=== PATIENT | female | born 1975 | race African-American/Black ===

== ENCOUNTER 2016-05-28 10:24 | Observation (INO) | payer OTHER ==
[~2016-05-28] VITALS: Ht 154.9 cm; Wt 85.0 kg
[~2016-05-28 10:24] MED LIST: GLUCTAB PO; HYDR-2768 PO; ROSU40 PO; [UNRECOGNIZED DRUG - CODE] PO
[2016-05-28 10:26] VITALS: BP 135/68; PULSE 68; RESP 12; TEMP 98.3; O2SAT 100
--- NOTE | 2016-05-28 10:50 | PD ---
HPI Chief Complaint: Chest Pain Time Seen by Provider: 10:49 Travel History International Travel<30 days: No Contact w/Intl Traveler<30days: No Traveled to known affect area: No History of Present Illness HPI 40-year-old female came to the emergency room with history of chest pain for past 2-3 days. Patient points to the left side of her chest and says pain is 8 out of 10. The pain waxes and wanes but never really goes away. No elevating or relieving factors. No radiation of the pain. She describes the pain to be sharp "poking" kind of pain. No recent long distance travel, procedures or surgeries. Patient has had substernal chest pains before and was told its atypical chest pain. She has never had a stress test. Patient has history of hypertension, hypercholesterolemia and diabetes. She recently had her high blood pressure and cholesterol medication doses increased since her blood pressure and cholesterol was out of control. Her father has history of heart attacks and 3 years ago from complications of it. She is not a smoker. [facility] Past Medical History Narrative Medical List of her past medical history is reviewed from the nursing note. Arthritis: Yes (OSTEO) Cardiovascular Problems: Yes (htn) Diabetes: Yes (type2) Diminished Hearing: No Musculoskeletal: Yes (CHRONIC BACK PAIN - PRN MEDS) Reproductive: Yes (UTERINE FIBRIODS) Migraines: Yes ?: Not LMP: 05/27/16 : 2 Para: 2 Tubal Ligation: Yes (TUBAL LIGATION 1999) Past Surgical History Gynecologic Surgery: Yes (TUBAL LIGATION) Family History Family Myocardial Infarction: Yes (father of heart attack) Social History Alcohol Use: Yes (OCCASIONALLY) Tobacco Use: No Substance Use: No Allergies-Medications (Allergen,Severity, Reaction): Coded Allergies: Tramadol (Verified Adverse Reaction, Severe, ITCHING, 08/02/14) Comments List of her allergies reviewed from the nursing note. Reported Meds & Prescriptions Reported Meds & Active Scripts Active Reported Triamterene-Hydrochlorothiazide 75-50 Mg Tab 1 Tab PO DAILY Lovastatin 40 Mg Tab 40 Mg PO DAILY Metformin (Metformin HCl) 500 Mg Tab 250 Mg PO DAILY With a meal Narrative Medication List of her home medications reviewed from the nursing note. Review of Systems Except as stated in HPI: all other systems reviewed are Neg Physical Exam Narrative GENERAL: Awake, alert, obese, anxious, mild distress SKIN: Warm and dry. HEAD: Atraumatic. Normocephalic. EYES: Pupils equal and round. No scleral icterus. No injection or drainage. ENT: No nasal bleeding or discharge. Mucous membranes pink and moist. NECK: Trachea midline. No JVD. CARDIOVASCULAR: Regular rate and rhythm. No murmur appreciated. RESPIRATORY: No accessory muscle use. Clear to auscultation. Breath sounds equal bilaterally. No reproducible chest pain GASTROINTESTINAL: Abdomen soft, non-tender, nondistended. Hepatic and splenic margins not palpable. MUSCULOSKELETAL: No obvious deformities. No clubbing. No cyanosis. No edema. NEUROLOGICAL: Awake and alert. No obvious cranial nerve deficits. Motor grossly within normal limits. Normal speech. PSYCHIATRIC: Appropriate mood and affect; insight and judgment normal. Data Data Last Documented VS Vital Signs Date Time Temp Pulse Resp B/P Pulse Ox O2 Delivery O2 Flow Rate FiO2 05/28/16 11:11 97 Room Air 05/28/16 11:11 77 18 140/65 05/28/16 10:26 98.3 Orders Electrocardiogram (05/28/16 10:54) Basic Metabolic Panel (Bmp) (05/28/16 10:54) Ckmb (Isoenzyme) Profile (05/28/16 10:54) Complete Blood Count With Diff (05/28/16 10:54) Magnesium (Mg) (05/28/16 10:54) Prothrombin Time / Inr (Pt) (05/28/16 10:54) Act Partial Throm Time (Ptt) (05/28/16 10:54) Troponin I (05/28/16 10:54) Chest, Single Ap (05/28/16 10:54) Ecg Monitoring (05/28/16 10:54) Bilateral Bp Monitoring (05/28/16 10:54) Iv Access Insert/Monitor (05/28/16 10:54) Oximetry (05/28/16 10:54) Oxygen Administration (05/28/16 10:54) Sodium Chloride 0.9% Flush (Ns Flush) (05/28/16 11:00) Aspirin Chew (Aspirin Chew) (05/28/16 11:00) Morphine Inj (Morphine Inj) (05/28/16 11:00) Ondansetron Inj (Zofran Inj) (05/28/16 11:00) Sodium Chlorid 0.9% 500 Ml Inj (Ns 500 M (05/28/16 12:15) Admit Order (Ed Use Only) (05/28/16 12:03) Labs Laboratory Tests Test 05/28/16 11:05 White Blood Count 5.9 TH/MM3 Red Blood Count 5.20 MIL/MM3 Hemoglobin 13.1 GM/DL Hematocrit 38.8 % Mean Corpuscular Volume 74.7 FL Mean Corpuscular Hemoglobin 25.3 PG Mean Corpuscular Hemoglobin 33.8 % Concent Red Cell Distribution Width 12.9 % Platelet Count 243 TH/MM3 Mean Platelet Volume 9.6 FL Neutrophils (%) (Auto) 48.7 % Lymphocytes (%) (Auto) 41.1 % Monocytes (%) (Auto) 7.2 % Eosinophils (%) (Auto) 2.1 % Basophils (%) (Auto) 0.9 % Neutrophils # (Auto) 2.9 TH/MM3 Lymphocytes # (Auto) 2.4 TH/MM3 Monocytes # (Auto) 0.4 TH/MM3 Eosinophils # (Auto) 0.1 TH/MM3 Basophils # (Auto) 0.1 TH/MM3 CBC Comment DIFF FINAL Differential Comment Prothrombin Time 10.7 SEC Prothromb Time International 1.0 RATIO Ratio Activated Partial 26.7 SEC Thromboplast Time Sodium Level 133 MEQ/L Potassium Level 3.9 MEQ/L Chloride Level 99 MEQ/L Carbon Dioxide Level 27.9 MEQ/L Anion Gap 6 MEQ/L Blood Urea Nitrogen 15 MG/DL Creatinine 0.79 MG/DL Estimat Glomerular Filtration 97 ML/MIN Rate Random Glucose 90 MG/DL Calcium Level 9.5 MG/DL Magnesium Level 2.0 MG/DL Total Creatine Kinase 82 U/L Troponin I LESS THAN 0.02 NG/ML MDM Medical Decision Making Medical Screen Exam Complete: Yes Emergency Medical Condition: Yes Medical Record Reviewed: Yes Interpretation(s) Twelve-lead EKG was reviewed by me. Normal sinus rhythm, normal axis, nonspecific ST-T wave changes. Heart rate of 65 bpm. Differential Diagnosis ACS, non-STEMI, nonspecific chest pain Narrative Course 11:10 AM awaiting for the blood test result. Patient has multiple risk factors for coronary artery disease. I discussed this with the patient. My plan is to admit her to chest pain center to rule out ACS at the least of the blood tests are negative. 12:01 PM CBC is back and within normal limit. Chest x-rays within normal limit. Chemistry shows mild hyponatremia but troponin is within normal limit. I'll admit her to the chest pain center to rule out ACS. Procedures EKG Prior to Arrival: Yes Diagnosis Primary Impression: Chest pain Qualified Code: R07.9 - Chest pain, unspecified type Additional Impression: Hyponatremia Admitting Information Admitting Physician Requests: Observation Stephanie Arrington MD May 28, 2016 10:50
[2016-05-28] MEDS ORDERED: ASPIRIN 81 MG CHEW TAB CHEW ONE (11:00)
[2016-05-28] MEDS ORDERED: SODIUM CHLORIDE 0.9% FLUSH 5 ML FLUSH IVF PRN ×2 (11:00→12:45)
[2016-05-28] MEDS ORDERED: MORPHINE SULFATE 4 MG/ML INJ IV PUSH ONE (11:00)
[2016-05-28] MEDS ORDERED: ONDANSETRON HCL 4 MG/2 ML VIAL IV PUSH ONE (11:00)
[2016-05-28 11:11] VITALS: BP_SYST 121; BP_SYST 140; BP_DIAS 65; BP_DIAS 69; PULSE 76; PULSE 77; RESP 18; O2SAT 98
[2016-05-28 11:17] LABS: AUTOMATED NEUTROPHIL # 2.9 TH/MM3 (1.8-7.7); BASOPHIL # 0.1 TH/MM3 (0-0.2); BASOPHIL % 0.9 % (0.0-2.0); EOSINOPHIL # 0.1 TH/MM3 (0-0.4); EOSINOPHIL % 2.1 % (0.0-4.0); HEMATOCRIT 38.8 % (35.0-46.0); HEMO FLAGS DIFF FINAL; LYMPH % 41.1 % (9.0-44.0); LYMPHOCYTE # 2.4 TH/MM3 (1.0-4.8); MEAN CELL VOLUME 74.7 FL (80.0-100.0); MEAN CORPUSCULAR HEMOGLOBIN 25.3 PG (27.0-34.0); MEAN CORPUSCULAR HGB CONC 33.8 % (32.0-36.0); MONO % 7.2 % (0.0-8.0); NEUT % 48.7 % (16.0-70.0); PLATELET COUNT 243 TH/MM3 (150-450); RED CELL DISTRIBUTION WIDTH 12.9 % (11.6-17.2); WHITE BLOOD COUNT 5.9 TH/MM3 (4.0-11.0)
[2016-05-28] MEDS ORDERED: TRIA1TAB5 PO (11:21)
[2016-05-28] MEDS ORDERED: LOVA40TA PO (11:21)
[2016-05-28] MEDS ORDERED: METF500T PO (11:21)
[2016-05-28 11:27] LABS: APTT (PATIENT) 26.7 SEC (24.3-30.1); PROTHROMBIN TIME - PATIENT 10.7 SEC (9.8-11.6)
--- NOTE | 2016-05-28 11:43 | RADRPT ---
EXAM DATE/TIME: 05/28/2016 10:58 [facility] COMPARISON: No previous studies available for comparison. INDICATIONS : Chest pain. MEDICAL HISTORY : None. SURGICAL HISTORY : None. ENCOUNTER: Initial ACUITY: 1 day PAIN SCORE: 0/10 LOCATION: Left chest FINDINGS: A single view of the chest demonstrates the lungs to be symmetrically aerated without evidence of mas s, infiltrate or effusion. The cardiomediastinal contours are unremarkable. Osseous structures are intact. CONCLUSION: No acute disease. Sukhi Jose MD on May 28, 2016 at 11:41 Board Certified Radiologist. This report was verified electronically.
[2016-05-28 11:57] LABS: ANION GAP 6 MEQ/L (5-15); BICARBONATE 27.9 MEQ/L (21.0-32.0); BLOOD UREA NITROGEN 15 MG/DL (7-18); CHLORIDE 99 MEQ/L (98-107); GLOMERULAR FILTRATION RATE 97 ML/MIN (>89); SODIUM (NA) 133 MEQ/L (136-145)
[2016-05-28 12:01] LABS: CREATINE KINASE 82 U/L (26-192); POTASSIUM 3.9 MEQ/L (3.5-5.1)
[2016-05-28] MEDS ORDERED: SODIUM CHLORID 0.9% 500 ML INJ 500 ML IV ONE (12:15)
[2016-05-28 12:45] VITALS: BP 130/55; PULSE 55; RESP 18; O2SAT 97
[2016-05-28] MEDS ORDERED: GLUCAGON 1 MG/ML VIAL IM/SQ PRN (12:45)
[2016-05-28] MEDS ORDERED: DEXTROSE 50% IN WATER 50 ML VIAL(D50) IV PRN (12:45)
--- NOTE | 2016-05-28 12:59 | HHI.HP ---
HPI Primary Care Physician Non-Staff Chief Complaint Chest pain History of Present Illness This is a 40-year-old female that presents to the ED clouding of chest discomfort. She states that yesterday she had pinching type of discomforts with tingling going down her left arm. Then this morning she developed a discomfort in her sternum that was more constant. Initially the discomfort was a 12 out of 10. After morphine and took her to buy an 8 out of 10. It has continued to dissipate and is currently a much lower level. She was not short of breath but did have it took her breath away initially. No nausea or diaphoresis. She has had discomfort in her chest before and was seen for it and was told that it was atypical chest discomfort. She has never had stress testing. Never had heart catheterization. Denies recent illness or trauma. Nothing make her symptoms worse. Morphine did help. Review of Systems General: Patient denies fevers, chills recent, and recent travel HEENT: Patient denies headache, sore throat, difficulty swallowing. Cardiovascular: Has the chest discomfort as mentioned above. Denies sensation of heart beating rapidly or irregularly. No syncope. Respiratory: Denies shortness of breath or inspirational chest discomfort. Denies coughing wheezing or hemoptysis. GI: Patient denies nausea, vomiting, diarrhea, abdominal pain, bloody stools. Musculoskeletal: Patient denies joint pain or edema. Denies calf pain or edema. Neurovascular: Patient denies numbness, tingling, weakness in extremities. Denies headache. Endocrine: Denies polyuria and polydipsia. Hematologic: Denies easy bruising. Skin: Denies rash or itching. Past Family Social History Allergies: Coded Allergies: Tramadol (Verified Adverse Reaction, Severe, ITCHING, 08/02/14) Past Medical History Hypertension, hyperlipidemia, and diabetes. Denies known coronary artery disease. Past Surgical History Tubal ligation. Reported Medications Reported Meds & Active Scripts Active Reported Triamterene-Hydrochlorothiazide 75-50 Mg Tab 1 Tab PO DAILY Lovastatin 40 Mg Tab 40 Mg PO DAILY Metformin (Metformin HCl) 500 Mg Tab 250 Mg PO DAILY With a meal Active Ordered Medications Current Medications Medications (Trade) Dose Ordered Sig/Igor Route Start Time Stop Time Status Last Admin IV Flush 2 ml 2 ml UNSCH PRN IVF 05/28/16 11:00 (NS 500 ml Inj) 500 ml @ 500 mls/hr BOLUS ONCE IV 05/28/16 12:15 05/28/16 13:14 05/28/16 12:47 (NS Flush) 2 ml UNSCH PRN IVF 05/28/16 12:45 (NS Flush) 2 ml BID IVF 05/28/16 21:00 (Tylenol) 500 mg Q4H PRN PO 05/28/16 13:00 (Zofran Inj) 4 mg Q6H PRN IV 05/28/16 17:00 (Aspirin) 325 mg DAILY PO 05/29/16 09:00 (D50w (Vial) Inj) 25 ml UNSCH PRN IV 05/28/16 12:45 (Glucagon Inj) 1 mg UNSCH PRN IM/SQ 05/28/16 12:45 Family History Father had an AL at 68. Social History Patient is a nonsmoker. Has occasional alcohol. Denies illicit drugs. Physical Exam Vital Signs Vital Signs Date Time Temp Pulse Resp B/P Pulse Ox O2 Delivery O2 Flow Rate FiO2 05/28/16 12:45 55 18 130/55 97 Nasal Cannula 2 05/28/16 11:11 97 Room Air 05/28/16 11:11 77 18 140/65 98 Room Air 05/28/16 11:11 86 18 97 Room Air 05/28/16 11:11 76 121/69 140/65 05/28/16 10:26 98.3 68 12 135/68 100 Room Air Physical Exam GENERAL: This is a well-nourished, well-developed patient, in no apparent distress. Patient speaks in clear complete sentences. Patient is pleasant. HEENT: Head is atraumatic and normocephalic. Neck is supple without lymphadenopathy and trachea is midline. No JVD or carotid bruits. CARDIOVASCULAR: Regular rate and rhythm without murmurs, gallops, or rubs. RESPIRATORY: Clear to auscultation. Breath sounds equal bilaterally. No wheezes , rales, or rhonchi. Chest wall is tender on the left side however it is not the same discomfort. No use of accessory muscles. GASTROINTESTINAL: Abdomen is nontender, nondistended. Abdomen soft. No obvious pulsatile mass or bruit. No CVA tenderness. Strong femoral pulses bilaterally. Normal bowel sounds in all quadrants. MUSCULOSKELETAL: Patient is moving upper and lower extremities freely. No calf tenderness or edema, no Homans sign. Strong pulses in upper and lower extremities. NEUROLOGICAL: Patient is alert and oriented. Cranial nerves 2-12 are grossly intact. No focal deficits and speech is clear. SKIN: No rash and turgor is normal. Laboratory Laboratory Tests Test 05/28/16 11:05 White Blood Count 5.9 Red Blood Count 5.20 Hemoglobin 13.1 Hematocrit 38.8 Mean Corpuscular Volume 74.7 Mean Corpuscular Hemoglobin 25.3 Mean Corpuscular Hemoglobin 33.8 Concent Red Cell Distribution Width 12.9 Platelet Count 243 Mean Platelet Volume 9.6 Neutrophils (%) (Auto) 48.7 Lymphocytes (%) (Auto) 41.1 Monocytes (%) (Auto) 7.2 Eosinophils (%) (Auto) 2.1 Basophils (%) (Auto) 0.9 Neutrophils # (Auto) 2.9 Lymphocytes # (Auto) 2.4 Monocytes # (Auto) 0.4 Eosinophils # (Auto) 0.1 Basophils # (Auto) 0.1 CBC Comment DIFF FINAL Differential Comment Prothrombin Time 10.7 Prothromb Time International 1.0 Ratio Activated Partial 26.7 Thromboplast Time Sodium Level 133 Potassium Level 3.9 Chloride Level 99 Carbon Dioxide Level 27.9 Anion Gap 6 Blood Urea Nitrogen 15 Creatinine 0.79 Estimat Glomerular Filtration 97 Rate Random Glucose 90 Calcium Level 9.5 Magnesium Level 2.0 Total Creatine Kinase 82 Troponin I LESS THAN 0.02 Result Diagram: 05/28/16 1105 05/28/16 1105 Imaging Last 24 hours Impressions Chest X-Ray 05/28/16 1054 Signed Impressions: Service Date/Time: May 10:58 - CONCLUSION: No acute disease. Sukhi Jose MD Course Initial EKG is sinus rhythm without significant ST segment depressions or elevation. Nonspecific inferior T-wave changes. Assessment and Plan Assessment and Plan * Atypical chest pain: Patient had first set of cardiac enzymes and EKGs and are unremarkable. Patient has been seen by Dr. Schaefer of cardiology and the chest pain center and will now undergo a Parth protocol ETT. If the ETT were to be nonischemic she was discharged home with instructions to follow-up with her PCP. * Hypertension: Continue current medications. * Hyperlipidemia: Continue current medications. * Diabetes: Patient will have sliding scale insulin coverage while in the chest pain center. She will be advised to follow a diabetic diet and resume her medication at discharge. Ronald eSymour May 28, 2016 12:59
[2016-05-28] MEDS ORDERED: ACETAMINOPHEN 500 MG CPLT PO PRN (13:00)
[2016-05-28 13:35] VITALS: O2SAT 97
--- NOTE | 2016-05-28 13:57 | HHI.DCPOC ---
Discharge Care Plan Diagnosis: (1) Chest pain, atypical (2) Hypertension (3) Hyperlipidemia Goals to Promote Your Health * To prevent worsening of your condition and complications * To maintain your health at the optimal level Directions to Meet Your Goals Take your medications as prescribed Follow your dietary instruction Follow activity as directed Keep your appointments as scheduled Take your immunizations and boosters as scheduled If your symptoms worsen call your PCP, if no PCP go to Urgent Care Center or Emergency Room Smoking is Dangerous to Your Health. Avoid second hand smoke Call the 24-hour hour crisis hotline for domestic abuse at Ronald Seymour May 28, 2016 13:57
[2016-05-28] MEDS ORDERED: INSULIN ASPART SUPPLEMENTAL SCALE SQ SCH (16:00)
[2016-05-28] MEDS ORDERED: ONDANSETRON HCL 4 MG/2 ML VIAL IV PRN (17:00)
[2016-05-28] MEDS ORDERED: SODIUM CHLORIDE 0.9% FLUSH 5 ML FLUSH IVF SCH (21:00)
[2016-05-29] MEDS ORDERED: ASPIRIN 325 MG TAB PO SCH (09:00)
--- NOTE | 2016-05-29 16:52 | TR ---
Date Performed: 05/28/2016 Time Performed: 13:38:05 DOCTOR: Dawson Schaefer DRUG LIST: CLINICAL HISTORY: REASON FOR TEST: REASON FOR ENDING: OBSERVATION: CONCLUSION: RENA PROTOCOL. NO CP. TEST STOPPED AFTER EXCEEDING GOAL HR SECONDARY TO SOB AND LEG FATIGUE.Maximum GT=762 % Max HR Achieved=85.0% Maximum GI=314/78 Total Exercise Time=7:31 COMMENTS: Conclusion: Normal treadmill exercise. No evidence of ischemia.
--- NOTE | 2016-05-29 17:03 | EKG ---
Date Performed: 05/28/2016 Time Performed: 10:54:10 PTAGE: 40 years EKG: Sinus rhythm WITH SINUS ARRHYTHMIA NONSPECIFIC T-WAVE ABNORMALITY BORDERLINE ECG PREVIOUS TRACING : 11/11/2011 19.15 Since previous tracing, no significant change noted DOCTOR: Dawson Schaefer Interpretating Date/Time 05/29/2016 17:01:32
[2016-07-16] MEDS ORDERED: ZANT150T2 PO (09:14)
[2016-07-22] MEDS ORDERED: METR0.7528 VAGINAL (11:54)
== END 2016-05-28 15:40 | disposition home or self-care (01) ==
LOC: NEPC 10:24 → NEDA 12:05
DX: R07.89 Other chest pain (principal); E87.1 Hypo-osmolality and hyponatremia; I10 Essential (primary) hypertension; E78.5 Hyperlipidemia, unspecified; E78.00 Pure hypercholesterolemia, unspecified; R94.31 Abnormal electrocardiogram [ECG] [EKG]; E11.9 Type 2 diabetes mellitus without complications; Z79.84 Long term (current) use of oral hypoglycemic drugs; Z82.49 Family history of ischemic heart disease and other diseases of the circulatory system
CPT/HCPCS: 71010; 80048; 82550; 83735; 84484; 85025; 85610; 85730; 93005; 93017; 96374; 96375; 99285; G0378; J2270; J2405; J7040

== ENCOUNTER 2016-12-18 17:25 | Emergency (ER) | payer OTHER ==
[~2016-12-18] VITALS: Ht 154.9 cm; Wt 88.0 kg
[~2016-12-18 17:25] MED LIST changes: -GLUCTAB PO; -HYDR-2768 PO; +LOVA40TA PO; +METF500T PO; +METR0.7528 VAGINAL; -ROSU40 PO; +TRIA1TAB5 PO; +ZANT150T2 PO; -[UNRECOGNIZED DRUG - CODE] PO
[2016-12-18 17:27] VITALS: BP 141/93; PULSE 101; RESP 22; TEMP 98.6; O2SAT 100
--- NOTE | 2016-12-18 18:05 | PD ---
HPI . lower back pain Chief Complaint: Back/ Neck Pain or Injury Time Seen by Provider: 18:04 Travel History International Travel<30 days: No Contact w/Intl Traveler<30days: No Traveled to known affect area: No History of Present Illness HPI 41-year-old female with history of hypertension, hyperlipidemia and diabetes here with complaints of low back pain. Patient tells me that she was walking down some stairs when she tripped and fell hitting her lower back. She now reports pain in the lumbar area. She says it's a sharp aching pain. She does not want any pain medications, but only wants to know if something is broken. She denies any head injury or loss of consciousness. She has no other complaints. PFSH Past Medical History Arthritis: Yes (OSTEO) Cardiovascular Problems: Yes (HTN, HYPERCHOLESTEROLEMIA) Diabetes: Yes Patient Takes Glucophage: Yes Diminished Hearing: No Musculoskeletal: Yes (CHRONIC BACK PAIN - PRN MEDS) Reproductive: Yes (UTERINE FIBRIODS) Immunizations Current: Yes Migraines: Yes ?: Not LMP: 11/2016 : 2 Para: 2 Tubal Ligation: Yes (TUBAL LIGATION 1999) Past Surgical History Gynecologic Surgery: Yes (TUBAL LIGATION) Social History Alcohol Use: Yes (OCCASIONALLY) Tobacco Use: No Substance Use: Yes (cannabis occ) Allergies-Medications (Allergen,Severity, Reaction): Coded Allergies: tramadol (Unverified Adverse Reaction, Severe, ITCHING, 12/18/16) Reported Meds & Prescriptions Reported Meds & Active Scripts Active Reported Zantac (Ranitidine HCl) 150 Mg Tab 150 Mg PO BID Triamterene-Hydrochlorothiazide 75-50 Mg Tab 1 Tab PO DAILY Lovastatin 40 Mg Tab 40 Mg PO DAILY Metformin (Metformin HCl) 500 Mg Tab 250 Mg PO DAILY With a meal Review of Systems General / Constitutional: No: Fever Eyes: No: Visual changes HENT: No: Headaches Cardiovascular: No: Chest Pain or Discomfort Respiratory: No: Shortness of Breath Gastrointestinal: No: Abdominal Pain Genitourinary: No: Dysuria Musculoskeletal: Positive: Pain (lower back pain) Skin: No Rash Neurologic: No: Weakness Psychiatric: No: Depression Endocrine: No: Polydipsia Hematologic/Lymphatic: No: Easy Bruising Physical Exam Narrative GENERAL: AAO x 3, no acute distress, Well-nourished, well-developed patient. SKIN: Warm and dry. No visible rashes or bruising. HEAD: Normocephalic and atraumatic. EYES: No scleral icterus. No injection or drainage. ENT: No nasal drainage noted. Mucous membranes pink. Airway patent. NECK: Supple, trachea midline. No JVD. Tenderness along trapezius b/l, full ROM , flexion and extension is normal, CARDIOVASCULAR: Regular rate and rhythm without murmurs, gallops, or rubs. RESPIRATORY: Breath sounds equal bilaterally. No accessory muscle use. No rhonchi or rales. GASTROINTESTINAL: Abdomen soft, non-tender, nondistended. EXTREMITIES: No cyanosis or edema. BACK: some tenderness in the lumbar spine. no drop off. no paraspinal muscle tenderness NEURO: CN II-12 intact, surgical consultant strength normal b/l, UE and LE 5/5, no focal deficits PSYCH: AAO x 3, normal affect. Data Data Last Documented VS Vital Signs Date Time Temp Pulse Resp B/P (MAP) Pulse Ox O2 Delivery O2 Flow Rate FiO2 12/18/16 17:27 98.6 101 22 141/93 (109) 100 Room Air Orders Orders Spine, Lumbar Comp W/Obliq (12/18/16 18:09) Ibuprofen (Motrin) (12/18/16 20:15) MDM Medical Decision Making Medical Screen Exam Complete: Yes Emergency Medical Condition: Yes Medical Record Reviewed: Yes Differential Diagnosis bone contusion, pulled muscle, less likely fracture Narrative Course 41-year-old female here with complaints of lower back pain. On examination there are no overt abnormalities other than some tenderness in the lumbar spine. X-ray of the lumbar spine has been ordered. I offered pain medications and patient declined. She tells me she just wants something is broken. Last Impressions Lumbar Spine X-Ray 12/18/16 9714 Signed Impressions: Service Date/Time: Sunday, December 18, 2016 18:29 - CONCLUSION: Mild spurring. Abdifatah Salgado MD Discussed results with patient. Ibuprofen for pain. Advised OTC Ibuprofen PRN. Patient verbalized understanding of instructions, questions were answered, and thanked me for their care. I advised them if their condition worsens, please return to the nearest emergency room for further care. Diagnosis Primary Impression: Back pain Qualified Codes: M54.5 - Low back pain Patient Instructions: General Instructions Additional Instructions: Please return to emergency department if your symptoms return or worsen. Follow up with your primary care provider. Take medications as prescribed. You can use ice and heat alternating to your lower back. If your pain persist past 7-10 days, follow up with your primary care doctor. Med/Other Pt SpecificInfo: Prescription(s) given Disposition: 01 DISCHARGE HOME Condition: Stable Mel Hicks Dec 18, 2016 18:04
--- NOTE | 2016-12-18 19:55 | RADRPT ---
EXAM DATE/TIME: 12/18/2016 18:29 [facility] COMPARISON: No previous studies available for comparison. INDICATIONS : Back pain after fall down the stairs. MEDICAL HISTORY : None. SURGICAL HISTORY : None. ENCOUNTER: Initial ACUITY: 1 day PAIN SCORE: 10/10 LOCATION: Bilateral Lumbar spine FINDINGS: There are five non-rib bearing vertebral bodies. The vertebral bodies are in normal alignment withou t evidence of subluxation or scoliosis. Anterior marginal osteophytes are seen at the L2-L3, L3-L4 a nd to a lesser degree, the L4-L5 levels. The disc spaces are maintained. The posterior elements are intact without evidence of spondylolysis. The pedicles are intact. Bony mineralization is normal. No fracture is identified. There is rounded calcifications in the left lateral soft tissues between the lumbar spine and the lef t iliac bone potentially related to a hemangioma or phleboliths. CONCLUSION: Mild spurring. Abdifatah Salgado MD on December 18, 2016 at 19:50 Board Certified Radiologist. This report was verified electronically.
[2016-12-18] MEDS ORDERED: IBUPROFEN 800 MG TAB PO ONE (20:15)
== END 2016-12-18 20:49 | disposition home or self-care (01) ==
LOC: NEPD 17:25
DX: M54.5 Low back pain (principal); I10 Essential (primary) hypertension; E11.9 Type 2 diabetes mellitus without complications; E78.5 Hyperlipidemia, unspecified; Z79.84 Long term (current) use of oral hypoglycemic drugs
CPT/HCPCS: 72110; 99283

== ENCOUNTER 2017-01-24 10:56 | Emergency (ER) | payer SELFPAY ==
[~2017-01-24] VITALS: Ht 154.9 cm; Wt 85.0 kg
[~2017-01-24 10:56] MED LIST changes: -METR0.7528 VAGINAL
[2017-01-24 10:58] VITALS: BP 189/98; PULSE 70; RESP 13; TEMP 98.2; O2SAT 97
[2017-01-24 11:07] VITALS: BP 134/85
--- NOTE | 2017-01-24 11:18 | PD ---
HPI Chief Complaint: Cold / Flu Symptoms Time Seen by Provider: 11:14 Travel History International Travel<30 days: No Contact w/Intl Traveler<30days: No Traveled to known affect area: No History of Present Illness HPI 41-year-old Afro-Turkish female presents the emergency department with 3 day history of upper respiratory congestion, sore throat, and cough. Patient denies significant fever, shortness of breath, postnasal drip, or sinus headache. She denies ear pain. Or she complains her throat which is worse today than it was yesterday. She is eating well without diarrhea, nausea or vomiting. Patient is allergic to iodinated contrast, and tramadol. PFSH Past Medical History Arthritis: Yes (OSTEO) Cardiovascular Problems: Yes (HTN, HYPERCHOLESTEROLEMIA) Diabetes: Yes Diminished Hearing: No Musculoskeletal: Yes (CHRONIC BACK PAIN - PRN MEDS) Reproductive: Yes (UTERINE FIBRIODS) Immunizations Current: Yes Migraines: Yes : 2 Para: 2 Tubal Ligation: Yes (TUBAL LIGATION 1999) Past Surgical History Gynecologic Surgery: Yes (TUBAL LIGATION) Social History Alcohol Use: Yes (OCCASIONALLY) Tobacco Use: No Substance Use: Yes (cannabis occ) Allergies-Medications (Allergen,Severity, Reaction): Coded Allergies: Iodinated Contrast- Oral and IV Dye (Verified Allergy, Severe, Nausea/ Vomiting, 12/18/16) tramadol (Unverified Adverse Reaction, Severe, ITCHING, 12/18/16) Reported Meds & Prescriptions Reported Meds & Active Scripts Active Reported Zantac (Ranitidine HCl) 150 Mg Tab 150 Mg PO BID Triamterene-Hydrochlorothiazide 75-50 Mg Tab 1 Tab PO DAILY Lovastatin 40 Mg Tab 40 Mg PO DAILY Metformin (Metformin HCl) 500 Mg Tab 250 Mg PO DAILY With a meal Review of Systems Except as stated in HPI: all other systems reviewed are Neg General / Constitutional: No: Fever, Chills Eyes: No: Visual changes HENT: Positive: Sore Throat, Rhinitis, Rhinorrhea, Congestion, No: Headaches, Vertigo, Lightheadedness, Nosebleed, Neck Stiffness, Neck Pain, Dental Difficulties, Ear Discharge, Earache Cardiovascular: No: Chest Pain or Discomfort Respiratory: Positive: Cough, No: Shortness of Breath, Wheezing Gastrointestinal: No: Abdominal Pain Genitourinary: No: Dysuria Musculoskeletal: No: Pain Skin: No Rash Neurologic: No: Weakness Psychiatric: No: Depression Endocrine: No: Polydipsia Hematologic/Lymphatic: No: Easy Bruising Physical Exam Narrative GENERAL: Patient appears no acute distress. She is mildly hoarse. SKIN: Warm and dry. Normal color. Normal turgor. HEAD: Atraumatic. Normocephalic. EYES: Pupils equal and round. No scleral icterus. No injection or drainage. ENT: No nasal bleeding or discharge. Mucous membranes pink and moist. TMs are clear bilaterally. There is no sinus tenderness. There appears normal without significant erythema or exudate. There is no lymphadenopathy. Airway is patent. NECK: Trachea midline. Supple nontender without lymphadenopathy. CARDIOVASCULAR: Regular rate and rhythm. RESPIRATORY: No accessory muscle use. Clear to auscultation. Breath sounds equal bilaterally. MUSCULOSKELETAL: Extremities without clubbing, cyanosis, or edema. No obvious deformities. NEUROLOGICAL: Awake and alert. No obvious cranial nerve deficits. Motor grossly within normal limits. Five out of 5 muscle strength in the arms and legs. Normal speech. PSYCHIATRIC: Appropriate mood and affect; insight and judgment normal. Data Data Last Documented VS Vital Signs Date Time Temp Pulse Resp B/P (MAP) Pulse Ox O2 Delivery O2 Flow Rate FiO2 01/24/17 11:07 134/85 (101) 01/24/17 10:58 98.2 70 13 97 MDM Medical Decision Making Medical Screen Exam Complete: Yes Emergency Medical Condition: No Differential Diagnosis Upper respiratory infection. Pharyngitis. Viral syndrome. Narrative Course A medical screening exam was performed: At the time of evaluation the presenting medical condition was determined not to be of an emergent nature. The patient was given the option of receiving additional care, but declined. Patient was given options for additional community resources from which to obtain care. The Patient Has Been advised to seek medical attention for their presenting complaint. The patient has been advised to return to the ER at any time if an emergent condition develops. Condition: Stable Fab Perez Jan 24, 2017 11:18
== END 2017-01-24 11:32 | disposition left against medical advice (07) ==
LOC: NEPK 10:56
DX: J02.9 Acute pharyngitis, unspecified (principal)
CPT/HCPCS: 99281

== ENCOUNTER 2017-09-15 18:56 | Emergency (ER) | payer OTHER ==
[~2017-09-15] VITALS: Ht 154.9 cm; Wt 87.0 kg
[2017-09-15 19:26] VITALS: BP 155/75; PULSE 75; RESP 18; TEMP 98.5; O2SAT 100
[2017-09-15] MEDS ORDERED: AMLO5TAB2 PO (19:48)
[2017-09-15] MEDS ORDERED: VOLT100T (19:48)
[2017-09-15] MEDS ORDERED: CLAR10CA3 PO (19:48)
--- NOTE | 2017-09-15 19:54 | PD ---
HPI Chief Complaint: Abdominal Pain Time Seen by Provider: 19:36 Travel History International Travel<30 days: No Contact w/Intl Traveler<30days: No Traveled to known affect area: No History of Present Illness HPI 42 YO F presents to the ED for evaluation of worsening pelvic pain. The patient states that she has has lower abdominal pain for "a while" but it was aggravated by a transabdominal and transvaginal US performed 5 days ago. She states that the pain "feels like some one is using my uterus for a punching bag. " She denies fever, chills, nausea, vomiting, anorexia, diarrhea, constipation, melena, hematochezia, dysuria, hematuria, vaginal discharge, vaginal bleeding. She states that she has been treating with Tylenol with no improvement of symptoms. She states that she cannot take NSAIDS because she take Voltaren. She states that the US showed uterine fibroids and ovarian cysts. She states that she has a follow up appointment with her WET MACHINE CUTTER in 5 days. Denies risk of . Endorses unprotected sex with a single male partner, her , for the last 8 years. LMP "last month." PFSH Past Medical History Arthritis: Yes (OSTEO) Cardiovascular Problems: Yes (HTN, HYPERCHOLESTEROLEMIA) Diabetes: Yes Patient Takes Glucophage: No Diminished Hearing: No Musculoskeletal: Yes (CHRONIC BACK PAIN - PRN MEDS) Reproductive: Yes (UTERINE FIBRIODS) Immunizations Current: Yes Migraines: Yes ?: Not : 2 Para: 2 Tubal Ligation: Yes (TUBAL LIGATION 1999) Past Surgical History Gynecologic Surgery: Yes (TUBAL LIGATION) Social History Alcohol Use: Yes (OCCASIONALLY) Tobacco Use: No Substance Use: Yes (cannabis occ) Allergies-Medications (Allergen,Severity, Reaction): Coded Allergies: Iodinated Contrast- Oral and IV Dye (Verified Allergy, Severe, Nausea/ Vomiting, 12/18/16) tramadol (Unverified Adverse Reaction, Severe, ITCHING, 12/18/16) Reported Meds & Prescriptions Reported Meds & Active Scripts Active Reported Voltaren-Xr (Diclofenac Sodium) 100 Mg Tab.er.24h 75 Mg BID Claritin (Loratadine) 10 Mg Cap 10 Mg PO DAILY Amlodipine (Amlodipine Besylate) 5 Mg Tab 5 Mg PO DAILY Zantac (Ranitidine HCl) 150 Mg Tab 150 Mg PO BID Lovastatin 40 Mg Tab 40 Mg PO DAILY Metformin (Metformin HCl) 500 Mg Tab 250 Mg PO DAILY With a meal Review of Systems Except as stated in HPI: all other systems reviewed are Neg Physical Exam Narrative GENERAL: Well-nourished, well-developed -Lao female no acute distress. SKIN: Focused skin assessment warm/dry. HEAD: Normocephalic. EYES: No scleral icterus. No injection or drainage. NECK: Supple, trachea midline. No JVD or lymphadenopathy. CARDIOVASCULAR: Regular rate and rhythm without murmurs, gallops, or rubs. RESPIRATORY: Breath sounds clear and equal bilaterally. No accessory muscle use. GASTROINTESTINAL: Abdomen soft, nondistended. Active bowel sounds. Mild suprapubic and lower quadrant tenderness to deep palpation. MUSCULOSKELETAL: No cyanosis, or edema. BACK: Nontender without obvious deformity. No CVA tenderness. Data Data Last Documented VS Vital Signs Date Time Temp Pulse Resp B/P (MAP) Pulse Ox O2 Delivery O2 Flow Rate FiO2 09/15/17 19:26 98.5 75 18 155/75 (101) 100 Orders Orders Ed Urine Pregnancytest Poc (09/15/17 19:46) Urinalysis - C+S If Indicated (09/15/17 20:33) Ed Discharge Order (09/15/17 21:42) Labs Laboratory Tests Test 09/15/17 20:45 Urine Color LIGHT-YELLOW Urine Turbidity CLEAR Urine pH 7.0 Urine Specific [place] 1.014 Urine Protein NEG mg/dL Urine Glucose (UA) NEG mg/dL Urine Ketones NEG mg/dL Urine Occult Blood NEG Urine Nitrite NEG Urine Bilirubin NEG Urine Urobilinogen LESS THAN 2.0 MG/DL Urine Leukocyte Esterase NEG Urine WBC LESS THAN 1 /hpf Urine Squamous Epithelial Cells 1 /hpf Urine Bacteria RARE /hpf Urine Mucus FEW /lpf Microscopic Urinalysis Comment CULT NOT INDICATED MDM Medical Decision Making Medical Screen Exam Complete: Yes Emergency Medical Condition: Yes Differential Diagnosis Chronic abdominal pain versus uterine fibroids versus ovarian cysts versus versus other Narrative Course 42-year-old female with PMH of uterine fibroids and ovarian cysts presents to the ED for worsening pelvic pain. Onset after the patient underwent a transabdominal and transvaginal ultrasound 5 days ago. She has been treating at home with Tylenol. She states she cannot take NSAIDs because she rarely takes Voltaren. She drove to the emergency room so is not a candidate for narcotic pain medications here. Will check a urine and UA, prescribe a short course of pain medication. EFORCSE was reviewed. No narcotic prescriptions found in the past year. Patient has follow-up with WET MACHINE CUTTER early next week. Patient signed out to Dr. Dooley at end of shift. Please see her note for disposition. Diagnosis Primary Impression: Lower abdominal pain, unspecified Referrals: Porcelain Slusher Additional Instructions: Rest, hydrate. Return to normal, gentle activity as tolerated. Take pain medications as prescribed. Do not drive when taking pain medications. Follow with the coal gasification technician as planned. Return to the ED for any urgent or emergent medical condition. Med/Other Pt SpecificInfo: Prescription(s) given Disposition: DISCHARGE HOME Condition: Stable Judy Murillo September 15, 2017 19:54
[2017-09-15] MEDS ORDERED: NORC5TAB PO (20:52)
--- NOTE | 2017-09-15 21:41 | PD ---
Physical Exam Narrative I, Dr. Dooley, have reviewed the advance practice practitioner's documentation and am in agreement, met with the patient face to face, made the diagnosis, and the medical decision making was done by me. *My assessment and Findings: Chronic pelvic pain vs. UTI vs. uterine fibroid 42yo F with pelvic pain like her usual pain. Urine negative. Pt was not given any narcotic since she is driving. Plan was to give a prescription for a few days because we reviewed EForsce and she was not prescribed any narcotics. UA is still pending but I was informed by the nurse that pt was upset no one offered her water. Said she has been here to long and already left before I can talk to her. Meigs prescription was discontinued since pt already left. Data Data Last Documented VS Vital Signs Date Time Temp Pulse Resp B/P (MAP) Pulse Ox O2 Delivery O2 Flow Rate FiO2 09/15/17 19:26 98.5 75 18 155/75 (101) 100 Orders Orders Ed Urine Pregnancytest Poc (09/15/17 19:46) Urinalysis - C+S If Indicated (09/15/17 20:33) Labs Laboratory Tests Test 09/15/17 20:45 MDM Supervised Visit with [place]: Yes Diagnosis Primary Impression: Lower abdominal pain, unspecified Referrals: Industrial Machinery Mechanic Additional Instruction: Rest, hydrate. Return to normal, gentle activity as tolerated. Take pain medications as prescribed. Do not drive when taking pain medications. Follow with the reception centre manager as planned. Return to the ED for any urgent or emergent medical condition. Disposition: 01 DISCHARGE HOME Condition: Stable Tari Dooley DO September 15, 2017 21:41
[2017-09-15 21:47] LABS: BACTERIA, URINE RARE /hpf; BILIRUBIN, URINE NEG (NEG); BLOOD, URINE NEG (NEG); GLUCOSE,URINE NEG (NEG); KETONE, URINE NEG (NEG); MUCUS URINE FEW /lpf (OCC); NITRITE,URINE NEG (NEG); SQUAMOUS EPITHELIAL CELL URINE 1 /hpf (0-5); URINE COLOR LIGHT-YELLOW (YELLW/STRAW); URINE LEUKOCYTE ESTERASE NEG (NEG)
== END 2017-09-15 21:31 | disposition left against medical advice (07) ==
LOC: NEPD 18:56
DX: R10.2 Pelvic and perineal pain (principal)
CPT/HCPCS: 81001; 84703; 99283

== ENCOUNTER 2017-10-12 05:40 | Observation (INO) | payer OTHER ==
[~2017-10-12] VITALS: Ht 154.9 cm; Wt 89.6 kg
[~2017-10-12 05:40] MED LIST changes: +AMLO5TAB2 PO; +CLAR10CA3 PO; +MEGE40TA PO; -TRIA1TAB5 PO; +VOLT100T
[2017-10-12] MEDS ORDERED: METOPROLOL TARTRATE 25 MG TAB PO PRN (06:15)
[2017-10-12] MEDS ORDERED: CHLORHEXIDINE GLUCONATE 2 % 1 PACK (2 CLOTHS) TOPICAL PRN (06:15)
[2017-10-12] MEDS ORDERED: SODIUM CHLORID 0.9% 500 ML IV PRN (06:15)
[2017-10-12] MEDS ORDERED: ceFAZolin 2 GM/DEX PREMIX 50 ML IV SCH (06:15)
[2017-10-12] MEDS ORDERED: LACTATED RINGER'S 1000 ML IV PRN (06:15)
[2017-10-12] MEDS ORDERED: ASPI-516 CHEW (06:21)
[2017-10-12] MEDS ORDERED: LIDOCAINE 1%/EPINEPHrine 1:100,000 SOLN 30 ML VIAL ONE (07:11)
[2017-10-12 07:22] LABS: AUTOMATED NEUTROPHIL # 3.8 TH/MM3 (1.8-7.7); BASOPHIL # 0.1 TH/MM3 (0-0.2); BASOPHIL % 0.8 % (0.0-2.0); EOSINOPHIL # 0.1 TH/MM3 (0-0.4); EOSINOPHIL % 1.9 % (0.0-4.0); HEMATOCRIT 38.3 % (35.0-46.0); HEMOGLOBIN 12.6 GM/DL (11.6-15.3); LYMPHOCYTE # 3.4 TH/MM3 (1.0-4.8); MEAN CELL VOLUME 77.2 FL (80.0-100.0); MEAN CORPUSCULAR HEMOGLOBIN 25.4 PG (27.0-34.0); MEAN CORPUSCULAR HGB CONC 32.9 % (32.0-36.0); MEAN PLATELET VOLUME 10.3 FL (7.0-11.0); MONOCYTE # 0.5 TH/MM3 (0-0.9); NEUT % 48.3 % (16.0-70.0); PLATELET COUNT 176 TH/MM3 (150-450); RED BLOOD COUNT 4.96 MIL/MM3 (4.00-5.30); WHITE BLOOD COUNT 7.9 TH/MM3 (4.0-11.0)
[2017-10-12] MEDS ORDERED: ACETAMINOPHEN 1000 MG/100 ML 100 ML IV ONE (08:30)
[2017-10-12] MEDS ORDERED: DO NOT ADM ANY ANTICOAGULANT DRUGS PRN (09:18)
--- NOTE | 2017-10-12 09:18 | PD.OP ---
Operative Report Date of Surgery: Oct 12, 2017 Preoperative Diagnosis: (1) Intramural leiomyoma of uterus (2) Pelvic pain Postoperative Diagnosis: (1) Intramural leiomyoma of uterus (2) Pelvic pain Procedure: LAVH BSO Anesthesia: general Surgeon: Abdifatah Root Test Designer(s): Abdifatah Álvarez MD Oct 12, 2017 09:18
[2017-10-12] MEDS ORDERED: MIDAZOLAM HCL 2 MG/2 ML VIAL ONE (09:28)
[2017-10-12] MEDS ORDERED: SODIUM CHLORIDE 0.9% FLUSH 10 ML FLUSH IV FLUSH PRN (09:30)
[2017-10-12] MEDS ORDERED: diphenhydrAMINE HCL 25 MG CAP PO PRN (09:30)
[2017-10-12] MEDS ORDERED: ONDANSETRON ODT 4 MG TAB SL PRN (09:30)
[2017-10-12] MEDS ORDERED: IBUPROFEN 600 MG TAB PO PRN (09:30)
[2017-10-12] MEDS ORDERED: HYDROmorphone HCL PF 2 MG/ML VIAL IV PRN (09:30)
[2017-10-12] MEDS ORDERED: KETOROLAC TROMETHAMINE 30 MG/ML (IVP) VIAL IVP PRN (09:30)
--- NOTE | 2017-10-12 09:35 | MP ---
cc: Abdifatah Root MD DATE OF OPERATION: 10/12/2017 DATE OF PROCEDURE: 10/12/2017 PROCEDURE: Laparoscopic-assisted vaginal hysterectomy, bilateral salpingo-oophorectomy. PREOPERATIVE DIAGNOSES: 1. Heavy menorrhagia and pelvic pain. 2. Fibroid uterus. POSTOPERATIVE DIAGNOSES: 1. Heavy menorrhagia and pelvic pain. 2. Fibroid uterus. SURGEON: Abdifatah Cortes MD ASSOCIATE DEAN OF WOMEN: LEVY Prasad. COMPLICATIONS: None. FINDINGS: A large fibroid uterus. Normal fallopian tubes bilaterally, normal ovaries bilaterally except for ovarian cyst on the right. ANESTHESIA: General. ESTIMATED BLOOD LOSS: 250 mL PROCEDURE IN DETAIL: After informed consent, the patient was taken to the operating room where she was placed in supine position, legs in the [place] stirrups. The abdomen, perineum, and vagina were prepped and draped in normal sterile fashion. After adequate anesthesia was assured and the patient was prepped and draped and timeout was taken, a speculum was placed in the vagina. The cervix was grasped with a single-tooth tenaculum. A uterine manipulator was placed into the cervix without difficulty. Gonsalez catheter was placed to dependent gravity. Gloves were changed. A 5 mm infraumbilical incision was made, after injection with 1% lidocaine with epinephrine. We entered the abdomen under direct visualization and insufflated the abdomen and left lower quadrant and right lower quadrant trocars were placed, 5 mm in type, after injecting with lidocaine. This went without any difficulty. Upper and lower abdomen were normal except for that described. The harmonic scalpel was used. Previous tubal ligation had been performed so the harmonic scalpel was used to come across the infundibulopelvic ligament, removing the ovaries from the pelvic sidewall and leaving them attached to the uterus. This was done bilaterally. We came along and removed the fallopian tubes separately, to be pulled through the 5 mm trocar sites. We continued with the harmonic scalpel down the broad ligament. Once we reached the round ligament, we opened the round ligament. All blood vessels were hemostatic. Bladder flap was created after incising the broad ligament bilaterally. We pushed the bladder down onto the cervix easily and then the uterine arteries were taken bilaterally. Once we were at the cervical branch of the uterine artery, our attention was turned down below where we brought the patient's legs back in the [facility] and then placed a weighted speculum in the posterior aspect of the vagina. We entered the anterior cul-de-sac without difficulty matching the incision from above in the bladder flap. Posterior cul-de-sac was then entered. We then proceeded to use a Santo clamp to clamp, cut, and tie the uterosacral and cardinal ligaments, clamping the cervical branch of the uterine artery and amputated the uterus from the pelvic sidewall. At this point, the uterus was pulled out without difficulty. The pedicles all were noted to be hemostatic. The posterior cuff was run with a running locked stitch of 0 Vicryl suture. Clean urine was noted at the end of the procedure. The vaginal cuff was closed with multiple [id number] sutures. Gloves were changed. Abdomen was reinsufflated. All pedicles noted to be hemostatic. The cul-de-sac was noted to be normal. At the end of the procedure, all instruments were removed, all CO2 was drained and the 5 mm trocar sites were closed with a simple stitch. The patient tolerated the procedure well. She was awakened and taken to the recovery room in stable condition. MD ELLA Suarez/ALESSANDRA , 09:04 AM , 09:34 AM
[2017-10-12] MEDS ORDERED: *MEPERIDINE 25 MG INJ VIAL PERIprocedural Use ONLY ONE (09:51)
[2017-10-12 10:30] VITALS: BP 127/60; PULSE 78; RESP 16; TEMP 97.8; O2SAT 96
[2017-10-12] MEDS ORDERED: PROPOFOL 200 MG/20 ML AMP IV ONE (12:00)
[2017-10-12] MEDS ORDERED: NEOSTIGMINE 5 MG/5 ML SYRINGE IV PUSH ONE (12:00)
[2017-10-12] MEDS ORDERED: ROCURONIUM INJ 50 MG/5 ML SYRINGE IV PUSH ONE (12:00)
[2017-10-12] MEDS ORDERED: PHENYLEPH/NS 1000 MCG/10 ML SYR IV ONE (12:00)
[2017-10-12] MEDS ORDERED: GLYCOPYRROLATE 1 MG/5 ML SYRINGE IV PUSH ONE (12:00)
[2017-10-12] MEDS ORDERED: ONDANSETRON HCL 4 MG/2 ML VIAL IV PUSH ONE (12:00)
[2017-10-12] MEDS ORDERED: LIDOCAINE HCL 1% PF 5 ML SYRINGE OTHER ONE (12:00)
[2017-10-12 14:43] VITALS: BP 128/69; PULSE 87; RESP 18; TEMP 98.3; O2SAT 100
[2017-10-12] MEDS: ACETAMINOPHEN/HYDROcodone 325 MG/5 MG TAB PO PRN (19:50)
--- NOTE | 2017-10-12 20:40 | HHI.DCPOC ---
Discharge Care Plan Diagnosis: (1) Intramural leiomyoma of uterus Report Symptoms to Your Doctor -Temperature above 100.5 degrees -Redness, of incision or excessive or foul smelling drainage -Unusual pain or calf pain -Increased vaginal bleeding -Painful or difficulty urinating -Feelings of extreme sadness or anxiety after 2 weeks Goals to Promote Your Health * To prevent worsening of your condition and complications * To maintain your health at the optimal level Directions to Meet Your Goals Take your medications as prescribed Follow your dietary instruction Follow activity as directed Ensure plenty of rest for recovery Drink fluids for hydration Keep your appointments as scheduled Take your immunizations and boosters as scheduled If your symptoms worsen call your PCP, if no PCP go to Urgent Care Center or Emergency Room Smoking is Dangerous to Your Health. Avoid second hand smoke Call the 24-hour crisis hotline for domestic abuse at Abdifatah Root MD Oct 12, 2017 20:40
[2017-10-12] MEDS ORDERED: SODIUM CHLORIDE 0.9% FLUSH 10 ML FLUSH IV FLUSH SCH (21:00)
[2017-10-12] MEDS ORDERED: ACETAMINOPHEN/HYDROcodone 325 MG/5 MG TAB PO PRN ×2 (21:00)
[2017-10-12 22:23] VITALS: BP 130/70; PULSE 75; RESP 18; TEMP 99.5
[2017-10-13 00:18] VITALS: BP 113/61; PULSE 76; RESP 18; TEMP 99.5
[2017-10-13 03:55] VITALS: BP 109/71; PULSE 68; RESP 18; TEMP 99.1
[2017-10-13 06:07] LABS: AUTOMATED NEUTROPHIL # 6.7 TH/MM3 (1.8-7.7); BASOPHIL # 0.1 TH/MM3 (0-0.2); BASOPHIL % 0.5 % (0.0-2.0); EOSINOPHIL % 0.2 % (0.0-4.0); HEMATOCRIT 34.4 % (35.0-46.0); HEMOGLOBIN 11.5 GM/DL (11.6-15.3); LYMPHOCYTE # 2.7 TH/MM3 (1.0-4.8); MEAN CELL VOLUME 76.1 FL (80.0-100.0); MEAN CORPUSCULAR HEMOGLOBIN 25.5 PG (27.0-34.0); MEAN CORPUSCULAR HGB CONC 33.5 % (32.0-36.0); MEAN PLATELET VOLUME 10.1 FL (7.0-11.0); MONO % 5.8 % (0.0-8.0); MONOCYTE # 0.6 TH/MM3 (0-0.9); NEUT % 66.5 % (16.0-70.0); PLATELET COUNT 188 TH/MM3 (150-450); RED BLOOD COUNT 4.52 MIL/MM3 (4.00-5.30); RED CELL DISTRIBUTION WIDTH 12.6 % (11.6-17.2)
--- NOTE | 2017-10-13 07:04 | HHI.PR ---
Subjective Remarks doing well, post op day #1 Objective Vital Signs Date Time Temp Pulse Resp B/P (MAP) Pulse Ox O2 Delivery O2 Flow Rate FiO2 10/13/17 03:55 99.1 68 18 109/71 (84) 10/13/17 00:18 99.5 76 18 113/61 (78) 10/12/17 22:23 99.5 75 18 130/70 (90) 10/12/17 14:43 98.3 87 18 128/69 (88) 100 10/12/17 10:30 97.8 78 16 127/60 (82) 96 10/12/17 10:00 97.9 79 20 125/59 (81) 100 Room Air 10/12/17 09:45 76 20 131/62 (85) 100 10/12/17 09:25 97.9 89 20 134/80 (98) 95 Nasal Cannula 2 I/O 10/12/17 10/12/17 10/12/17 10/13/17 10/13/17 10/13/17 07:00 15:00 23:00 07:00 15:00 23:00 Intake Total 1150 ml Output Total 700 ml Balance 450 ml Intake IV Total 50 ml Other 1100 ml Output Urine Total 450 ml Estimated Blood Loss 250 ml Result Diagram: 10/13/17 0532 Assessment and Plan Problem List: (1) Intramural leiomyoma of uterus ICD Codes: D25.1 - Intramural leiomyoma of uterus Abdifatah Root MD Oct 13, 2017 07:04
[2017-10-13] MEDS ORDERED: HYDR-3516 PO (07:06)
--- NOTE | 2017-10-13 07:08 | HHI.DS ---
Admission Date Oct 12, 2017 at 09:20 Discharge Date: Oct 13, 2017 Admitting Diagnosis Diagnosis: Brief History 42 yo with fibroid uterus Hospital Course post op day #1 HYST doing well Pt Condition on Discharge: Good Discharge Disposition: Discharge Home Discharge Instructions Diet Instructions: As Tolerated, No Restrictions Activities You Can Perform: Pelvic Rest Activities to Avoid: Driving for 24 hrs Follow up Referrals: MANAGER INVESTMENT BANKING - 2 Weeks @ [facility] with Abdifatah Root MD New Medications: Hydrocodone/Acetaminophen (Hydrocodone-Acetamin 5-325 mg) 5 Mg-325 Mg Tablet 1 TAB PO Q4H PRN for PAIN SCALE 1 TO 5, #30 TAB Continued Medications: Amlodipine (Amlodipine) 5 Mg Tab 5 MG PO DAILY for Blood Pressure Management, #30 TAB 0 Refills Aspirin (Aspirin) 81 Mg Chew 81 MG CHEW DAILY, TAB 0 Refills Diclofenac Sodium (Voltaren-Xr) 100 Mg Tab.er.24h 75 MG BID Lovastatin (Lovastatin) 40 Mg Tab 40 MG PO DAILY for Cholesterol Management, #30 TAB 0 Refills Metformin (Metformin) 500 Mg Tab 250 MG PO DAILY for Blood Sugar Management, #30 TAB 0 Refills With a meal Ranitidine (Zantac) 150 Mg Tab 150 MG PO BID for Reduce Stomach Acid, #60 TAB 0 Refills Discontinued Medications: Loratadine (Claritin) 10 Mg Cap 10 MG PO DAILY for Allergy Management, CAP 0 Refills Megestrol (Megestrol) 40 Mg Tab 40 MG PO DAILY, TAB 0 Refills Abdifatah Root MD Oct 13, 2017 07:08
[2017-10-13] MEDS: ACETAMINOPHEN/HYDROcodone 325 MG/5 MG TAB PO PRN (07:58)
== END 2017-10-13 08:30 | disposition home or self-care (01) ==
LOC: HSDC 05:40 → HSDI 09:20 → H1EA 10:17
PROVIDERS: ADMIT Obstetrics & Gynecology; ATTEND Obstetrics & Gynecology
DX: N92.0 Excessive and frequent menstruation with regular cycle (principal); R10.2 Pelvic and perineal pain; D25.1 Intramural leiomyoma of uterus
CPT/HCPCS: 00840; 58554; 85025; 88307; 96374; G0378; J0131; J0690; J1885; J2175; J2250; J2370; J2405; J2710; J3010